=== PATIENT | female | born 1955 | race African-American/Black ===

== ENCOUNTER → 2016-11-11 | Outpatient (CLI) | payer MEDICARE ==
[~2016-11-11] MED LIST: ADVIL200 MG PO; AMBIEN10 MG PO; ANUSOL-HC SUPPO25 MG RC; B COMPLEX1 TA4 PO; COLACE 100100 MG/CAP PO; DILANTIN 100MG100 MG PO; EVENING PRIMRO500 MG PO; EXCEDRIN 250 MG1 TAB PO; FLEXERIL 1010 MG/TAB PO; FOLIC ACID 40400 MCG PO; FOLIC ACID0.4 MG PO; GABAPENTIN; KEPPRA PO; KLONOPIN 0.5MG0.5 MG PO; KLONOPIN1 MG PO; LASIX20 MG PO; LORTAB 10/500 51 TAB PO; LORTAB 5/500 501 TAB PO; NAPROSYN500 MG PO; NEXIUM 40MG40 MG PO; NORCO 325 MG-51 TAB PO; PERCOCET 325 MG1 TA2 PO; PHENERGAN 25 TA25 MG PO; PRIL40 PO; PRILOSEC 20MG20 MG PO; PROVIGIL 100MG100 MG PO; PROVIGIL100 MG PO; PROZAC40 MG PO; TOPAMAX 25MG25 MG PO; TOPAMAX50 MG PO; VIT B COMPLEX; VIT D; VITAMIN E1000 U/CAP PO; XANAX0.5 MG PO; ZOFRAN 4MG T4 MG/TAB PO; ZOFRAN ODT4 MG PO; [UNRECOGNIZED DRUG - REMARK]
== END ==
LOC: BHSO 15:08
DX: F41.1 Generalized anxiety disorder (principal)

== ENCOUNTER → 2017-02-12 | Outpatient (CLI) | payer MEDICARE | LOC: BHSO 15:47 | DX: F41.1 Generalized anxiety disorder (principal) ==

== ENCOUNTER → 2017-07-22 | Outpatient (CLI) | payer MEDICARE | LOC: BHSO 15:05 | DX: F31.73 Bipolar disorder, in partial remission, most recent episode manic (principal) ==

== ENCOUNTER 2018-03-29 17:45 | Emergency (ER) | payer MEDICARE ==
[~2018-03-29] VITALS: Ht 162.6 cm; Wt 50.0 kg
[2018-03-29 17:55] VITALS: TEMP 98.1
[2018-03-29] MEDS ORDERED: ADDERALL20 MG PO (18:09)
[2018-03-29] MEDS ORDERED: AMBIEN 10MG10 MG PO (18:12)
[2018-03-29 18:42] LABS: COLLECTION METHOD CLEAN CATCH
[2018-03-29 18:47] LABS: PH 6 (5-8); SQUAMOUS EPITHELIAL 0-2 /hpf; URINE APPEARANCE Clear; URINE BACTERIA None Seen /hpf; URINE BILIRUBIN Negative (NEGATIVE); URINE BLOOD Negative (NEGATIVE); URINE COLOR Straw; URINE GLUCOSE Negative (NEGATIVE); URINE KETONE Negative (NEGATIVE); URINE LEUKOCYTE ESTERASE Negative (NEGATIVE); URINE NITRATE Negative (NEGATIVE); URINE PROTEIN(semi-quant) Negative (NEGATIVE); URINE RBC 0-2 /hpf; URINE UROBILINOGEN Negative (NEGATIVE)
[2018-03-29 20:08] VITALS: BP 116/59; PULSE 65
== END 2018-03-29 20:15 | disposition home or self-care (01) ==
LOC: COL.ER 17:45
PROVIDERS: Nurse Practitioner Primary Care
DX: G43.909 Migraine, unspecified, not intractable, without status migrainosus (principal); G89.29 Other chronic pain; M54.5 Low back pain; I10 Essential (primary) hypertension; F41.9 Anxiety disorder, unspecified; F43.10 Post-traumatic stress disorder, unspecified; Z90.49 Acquired absence of other specified parts of digestive tract; Z90.710 Acquired absence of both cervix and uterus
CPT/HCPCS: J1885; J2550

== ENCOUNTER → 2018-04-09 | Outpatient (CLI) | payer MEDICARE ==
[~2018-04-09] MED LIST changes: +ADDERALL20 MG PO; +AMBIEN 10MG10 MG PO
== END ==
LOC: BHSO 11:04
DX: F43.10 Post-traumatic stress disorder, unspecified (principal)

== ENCOUNTER → 2018-06-16 | Outpatient (CLI) | payer MEDICARE | LOC: BHSO 15:02 | DX: F43.10 Post-traumatic stress disorder, unspecified (principal) | CPT/HCPCS: G0463 ==

== ENCOUNTER → 2018-11-09 | Outpatient (CLI) | payer MEDICARE | LOC: BHSO 10:21 | DX: F43.10 Post-traumatic stress disorder, unspecified (principal) | CPT/HCPCS: G0463 ==

== ENCOUNTER → 2019-05-14 | Outpatient (CLI) | payer MEDICARE | LOC: BHSO 10:03 | DX: F43.10 Post-traumatic stress disorder, unspecified (principal) | CPT/HCPCS: G0463 ==

== ENCOUNTER → 2019-11-11 | Outpatient (CLI) | payer MEDICARE | LOC: BHSO 09:47 | DX: F43.10 Post-traumatic stress disorder, unspecified (principal) | CPT/HCPCS: G0463 ==

== ENCOUNTER → 2020-02-25 | Outpatient (CLI) | payer MEDICARE | LOC: BHSO 15:32 | DX: F41.1 Generalized anxiety disorder (principal) | CPT/HCPCS: G0463 ==

== ENCOUNTER 2022-01-06 19:24 | Emergency (ER) | payer MEDICARE ==
[~2022-01-06] VITALS: Ht 162.6 cm; Wt 50.9 kg
[2022-01-06 19:31] VITALS: TEMP 97.6
[2022-01-06] MEDS ORDERED: NAPROSYN500 MG PO (20:47)
[2022-01-06] MEDS ORDERED: ROBAXIN 50500 MG/TAB PO (20:47)
[2022-01-06 21:06] VITALS: BP 130/80; PULSE 71
[2022-01-25] MEDS ORDERED: LEVAQUIN 5500 MG/TA1 PO (12:41)
== END 2022-01-06 21:06 | disposition home or self-care (01) ==
LOC: COL.ER 19:24
DX: S70.02XA Contusion of left hip, initial encounter (principal); M54.50 Low back pain, unspecified; W01.0XXA Fall on same level from slipping, tripping and stumbling without subsequent striking against object, initial encounter; Y92.009 Unspecified place in unspecified non-institutional (private) residence as the place of occurrence of the external cause

== ENCOUNTER 2022-01-23 20:34 | Emergency (ER) | payer MEDICARE ==
[~2022-01-23] VITALS: Ht 162.6 cm; Wt 50.9 kg
[~2022-01-23 20:34] MED LIST changes: +ROBAXIN 50500 MG/TAB PO
[2022-01-23 20:47] VITALS: TEMP 97.4
[2022-01-23 21:29] LABS: COLLECTION METHOD CLEAN CATCH
[2022-01-23 21:33] LABS: BASO % 0.4 % (0.0-2.0); EOS # 0.2 K/mm3 (0.0-0.7); EOS % 1.5 % (0.0-4.0); GRAN # 7.4 K/mm3 (1.4-6.5); GRAN % 72.7 % (42.2-75.2); HEMOGLOBIN 11.3 g/dl (12.5-16.0); LYMPH # 1.6 K/mm3 (1.2-3.4); LYMPH % 15.9 % (20.0-51.0); MEAN CELL VOLUME 84 fl (80.0-100.0); MEAN CORPUSCULAR HEMOGLOBIN 28 pg (27-31); MEAN CORPUSCULAR HGB CONC 34 g/dl (33.0-37.0); MEAN PLATELET VOLUME 10.5 fl (7.4-10.4); MONO # 0.9 K/mm3 (0.1-0.6); PLATELET COUNT 360 K/mm3 (130-400); RED BLOOD COUNT 3.99 M/mm3 (4.10-5.30); REDCELL DISTRIBUTION WIDTH-CV 13.2 % (11.5-14.5)
[2022-01-23 21:34] LABS: HEMATOCRIT 33.4 % (37.0-47.0)
[2022-01-23 21:43] LABS: PH 6 (5-8); SQUAMOUS EPITHELIAL None Seen /hpf (0-10); URINE APPEARANCE Turbid (CLEAR/HAZY); URINE BACTERIA None Seen /hpf (NONE SEEN); URINE BILIRUBIN Negative (NEGATIVE); URINE BLOOD 2+ (NEGATIVE); URINE COLOR Amber (YELLOW); URINE GLUCOSE Negative (NEGATIVE); URINE KETONE Negative (NEGATIVE); URINE LEUKOCYTE ESTERASE 3+ (NEGATIVE); URINE NITRATE Positive (NEGATIVE); URINE PROTEIN(semi-quant) 2+ (NEGATIVE); URINE RBC >50 /hpf (0-2); URINE UROBILINOGEN Negative (NEGATIVE)
[2022-01-23 21:52] LABS: ALANINE AMINOTRANSFERASE < 6 U/L (0-55); ALBUMIN 3.3 gm/dL (3.4-4.8); ALKALINE PHOSPHATASE 121 U/L (40-150); ANION GAP 10 mmol/L (7-16); AST,SGOT 12 U/L (5-34); BILIRUBIN,TOTAL 0.3 mg/dL (0.2-1.2); BLOOD UREA NITROGEN 13 mg/dL (10-20); CARBON DIOXIDE 26 mmol/L (23-31); CHLORIDE 104 mmol/L (98-107); CREATININE, serum 0.82 mg/dL (0.57-1.11); GLUCOSE 83 mg/dL (70-99); SODIUM 140 mmol/L (136-145); TOTAL PROTEIN 7.3 gm/dL (6.2-8.1)
[2022-01-23] MEDS ORDERED: CEPHALEXIN500 M1 PO (22:03)
[2022-01-23] MEDS ORDERED: NORCO 325 MG-51 TAB PO (22:03)
[2022-01-23 22:22] VITALS: BP 121/69; PULSE 84
[2022-01-25] MEDS ORDERED: LEVAQUIN 5500 MG/TA1 PO (12:41)
== END 2022-01-23 22:22 | disposition home or self-care (01) ==
LOC: COL.ER 20:34
PROVIDERS: Personal Emergency Response Attendant
DX: N12 Tubulo-interstitial nephritis, not specified as acute or chronic (principal); Z90.49 Acquired absence of other specified parts of digestive tract
CPT/HCPCS: J0696; J7030